=== PATIENT | male | born 1950 | race Two or more races ===

== ENCOUNTER 2024-12-22 10:48 | Inpatient (IN) | payer MEDICARE, MEDICAID, SELFPAY ==
[2024-12-22] VITALS (9 sets, daily range): BP systolic 79–102; BP diastolic 45–61; PULSE 64–107; RESP 14–98; TEMP 36.4–36.7; O2SAT 96–100; BMI 23.5; BMI 25.2
--- NOTE | 2024-12-22 11:21 | EKG_ITS ---
[facility] Test Date: 2024-12-22 Pat Name: SERGIO CURRY Department: Room: - Gender: Male [employer] A[employer]: : 1950 Requested By: ED Temporary Provider Order Number: [id number] Reading MD: ED Temporary Provider Measurements Intervals Sacul Rate: 108 P: 63 [place]: 179 QRS: 58 QRSD: 97 T: 26 QT: 319 QTc: 428 Interpretive Statements SINUS TACHYCARDIA NONSPECIFIC ST & T-WAVE ABNORMALITY ABNORMAL RHYTHM ECG Compared to ECG 04/22/2023 08:46:19 T-wave abnormality now present Sinus rhythm no longer present /store/S0/[id number].pdf
[2024-12-22] MEDS: SODIUM CHLORIDE 0.9% 1000 ML 1,000 ML 999 ML IV ×2 (11:48→12:19)
--- NOTE | 2024-12-22 11:49 | PD.EDADULT ---
ED General RME/HPI General Chief complaint: Nausea/Vomiting/Diarrhea Stated complaint: NAUSEA/VOMITING FOR THE PAST TWO WEEKS Time Seen by Provider: 12/22/24 11:33 Arrival date/time: 12/22/24 10:48 RME / HPI RME / HPI narrative: DR. DOLL MAIN ED EVALUATION: 74 year old male with past medical history significant for hypertension and umbilical hernia surgery presents to the Emergency Department accompanied by his with multiple complaints include a cough, hiccups, nausea, vomiting, and diarrhea onset 12/03/2024; then constipation for the last week. Related Data Home Medications ?Medication ?Instructions ?Recorded ?Confirmed losartan 100 1 tab PO QDAY 04/22/23 12/05/23 mg-hydrochlorothiazide 25 mg tablet oxycodone-acetaminophen 5 mg-325 1 tab PO Q6HR PRN Pain 12/05/23 12/05/23 mg tablet Held on 12/05/23. Instructions: Resume on 12/06/23. MAY RESUME IN 24 HOURS Allergies Allergy/AdvReac Type Severity Reaction Status Date / Time codeine Allergy Intermediate HYPERACTIVE Verified 12/22/24 10:50 Review of Systems Review of Systems Systems Reviewed: All systems reviewed, normal except as documented Narrative Review of Systems: GEN: No fever, no chills, no weight loss, + hiccups EYES: No discharge, no visual changes, no pain HEENT: No ear pain, no congestion, no sore throat PULM: No shortness of breath, + cough CV: No chest pain, no dyspnea on exertion, no palpitations GI: + nausea, + vomiting, + diarrhea (ealier see HPI), no pain, + constipation (last week see HPI) : No frequency, no urgency and no dysuria MUSC/SKEL: No joint pain, no back pain SKIN: No rash PSYCH: No hallucinations, no depression HEME/LYMPH: No easy bleeding or bruising tendencies NEURO: No weakness, no headache Past Medical History Past Medical History CARDIAC: Positive Hypertension Social History SMOKING STATUS: Never smoker SUBSTANCE USE: does not use ALCOHOL: Never ED Exam Narrative Physical exam: GENERAL APPEARANCE: AxOx4, generally well-appearing HEENT: NC, AT. MMM. EOMI, clear conjunctiva, oropharynx clear. NECK: Supple without lymphadenopathy. No stiffness or restricted ROM. HEART: Normal rate and regular rhythm, normal S1/S1, no m/r/g LUNGS: CTAB, moving air well. No crackles or wheezes are heard. ABDOMEN: Left abdominal pain more on the lower compared to the upper abdomen. Good bowel sounds heard. BACK: No midline C/T/L spine pain or deformity, No CVAT, no obvious deformity. EXTREMITIES: Without cyanosis, clubbing or edema. MUSCULOSKELETAL: FROM of all major joints, no chest tenderness NEUROLOGICAL: Grossly nonfocal. Alert and oriented, moving all 4 extremities. CN not formally tested but appear grossly intact. Observed to ambulate with normal gait. Skin: Warm and dry without any rash. Course Course Course Narrative: 1213: Sepsis alert initiated. Orders made at this time are congruent with ED Adult Sepsis Order List. Re-evaluation is to be completed. 1219: Fluids started. 1249: Sepsis reassessment performed consisting of lab review, vitals, physical exam including auscultation of heart, lungs, and visual evaluation of capillary refills, mucosal membranes and extremities. Quality Measures Current suspected stage: sepsis Possible source: GI tract/intra-abdominal Blood cultures ordered: yes Antibiotic ordered: Yes Pertinent labs: 12/22/24 12/22/24 11:43 15:27 Lactic Acid 5.0 H* mMol/L 2.8 H mMol/L (0.4-2.0) (0.4-2.0) Procalcitonin 0.98 H ng/ml (0.0-0.49) sepsis Orders Category Date Time Status Bedside Influenza A&B Antigen Test NOW Care 12/22/24 11:33 Completed EKG (ED ONLY) *Do not use* NOW Care 12/22/24 11:21 Completed Quinones to [place] Routine Care 12/22/24 14:26 Ordered NPO STAT Care 12/22/24 11:[address] chest abdomen pelvis wo Stat Exams 12/22/24 12:44 Completed EKG (ED Only) Stat Exams 12/22/24 11:21 Draft US gall bladder Stat Exams 12/22/24 14:32 Completed XR chest 1V portable Stat Exams 12/22/24 11:51 Completed Blood Culture (Lab) Stat Lab 12/22/24 14:20 Received CBC Stat Lab 12/22/24 11:43 Completed Comprehensive Metabolic Panel Stat Lab 12/22/24 11:43 Completed Creatine Kinase Stat Lab 12/22/24 11:43 Completed Lactate (Lactic Acid) Stat Lab 12/22/24 11:43 Completed Lactic Acid, 3 HR Stat Lab 12/22/24 15:27 Completed Lipase Stat Lab 12/22/24 11:43 Completed Magnesium Stat Lab 12/22/24 11:43 Completed Procalcitonin Stat Lab 12/22/24 11:43 Completed Troponin I Stat Lab 12/22/24 11:43 Completed Urinalysis Stat Lab 12/22/24 14:56 Completed Piper/Tazo Inj [Zosyn Inj] 3.375 gm Med 12/22/24 14:14 Discontinued SODIUM CHLORIDE 0.9% (Popper) [NS 0.9% (Popper)] 50 ml IV X1 Sodium Chloride 0.9% 1000 ml [Ns] 1,000 ml Med 12/22/24 11:47 Discontinued IV 999 mls/hr Sodium Chloride 0.9% 1000 ml [Ns] 1,000 ml Med 12/22/24 11:48 Discontinued IV 999 mls/hr Sodium Chloride 0.9% 500 ml [Ns] 500 ml Med 12/22/24 12:27 Discontinued IV 999 mls/hr Vital Signs Vital signs: Vital Signs Temperature 97.7 F 12/22/24 11:37 Pulse Rate 107 H 12/22/24 11:37 Respiratory Rate 19 12/22/24 11:37 Blood Pressure 83/54 L 12/22/24 11:37 Pulse Oximetry (%) 99 12/22/24 11:37 Oxygen Delivery Method Room Air 12/22/24 11:37 Procedures -ED EKG Interpretation #1: Date of EK12/22/24 Time of EK:27 Rate: 108 Interpretation: Interpreted by me Additional EKG comment: sinus tachycardia, rate 108, normal intervals, normal axis, no acute ST-T wave changes. MDM Patient data External records reviewed:: [facility] previous records (Reviewed EGD note by Dr. Mejia dated 12/05/23.) Clinical information provided by:: patient and spouse Social determinants that could affect healthcare access:: none Patient has the following chronic illnesses:: hypertension and umbilical hernia surgery How is presenting disease/condition affected by chronic disease/condition?: exacerbated by Evaluation data The following diagnostics were reviewed and interpreted by me:: lab results, radiology exam(s) and EKG tracing(s) Lab and/or radiology exams considered but not ordered:: none Interpretation Summary: Patient is in renal failure, septic and dehydrated, CT of chest/abdomen/pelvis ordered. RADIOLOGY Procedure(s): XR chest 1V portable Accession Number(s): [id number] cc: Keaton Cantu MD; Brock ([facility])Sandrita~ Examination: AP chest single view Technique one AP portable upright chest single view Exam date and time: December 22, 2024 1154 hrs. Comparison February 26, 2019 Indication: Syncopal episode today. Findings: Atelectasis versus scarring in the lingular segment. Atelectasis versus early pneumonia in the right mid and lower lung zone Mild prominence left ventricle Impression: Atelectasis and/or early pneumonia in the right mid and lower lung zone, clinical correlation advised Dictated By: Keaton Cantu MD Procedure(s): CT chest abdomen pelvis wo Accession Number(s): [id number] cc: Chase Doll MD; Keaton Cantu MD~ Examination: CT chest, without intravenous contrast. CT abdomen, without intravenous contrast. CT pelvis, without intravenous contrast. 2-D sagittal and coronal reconstructions. 3-D reconstructions. Date and time of exam:December 22, 2024 1350 hrs. Comparison January 14, 2023 Indications: Sepsis today, renal failure abdominal pain CTDI vol (mgy) 6.57 DLP (MGycm)524 Technique: Multiple CT images, 3.0 mm slice thickness, obtained chest, abdomen, pelvis, with the high-resolution 64 slice scanner.. Sagittal and coronal 2-D reconstructions are obtained. 3-D reconstructions Low dose protocols were performed. One or more of the following dose reduction techniques were used; automated exposure control, adjustment of the mA and/or KV according to patient size, use of iterative reconstruction technique. Findings: No thoracic aortic aneurysm dilatation Pulmonary artery segments are not enlarged No paratracheal tracheobronchial or bronchopulmonary adenopathy Extensive bilateral pneumonia primarily in the lower lobes No pulmonary edema Fatty liver, no focal liver or splenic lesions Gallbladder is significantly distended although no definite extrahepatic biliary tract dilatation No pancreatic or adrenal mass Perinephric stranding No renal calculi or hydronephrosis Aorta normal size Normal appendix No bowel obstruction Significant prostatomegaly AP dimension 5.1 cm with mild thickening of the urinary bladder wall Fat-containing left inguinal hernia Impression: Significant bilateral pneumonia especially lung bases Significantly distended gallbladder, recommend hepatobiliary sonography follow-up Minimal hydronephrosis, likely secondary to marked prostatomegaly Mild thickening of the urinary bladder wall, likely early urinary tract outflow obstruction secondary to the prostatomegaly Dictated By: Keaton Cantu MD Procedure(s): US gall bladder Accession Number(s): [id number] cc: Zack Mohan MD; Chase Doll MD; Keaton Cantu MD~ Examination: Abdomen sonogram, Limited Date and time of exam: December 22, 2024 1539 hrs. Indications: Upper abdominal pain nausea vomiting beginning 3 weeks ago Technique: Real-time prieto scale transabdominal sonographic images of the upper abdomen obtained. Findings: Gallbladder sludge No gallstones Normal gallbladder wall Common bile duct reports CM Pancreatic head 3.2 cm Liver 14.2 cm fatty infiltration Normal hepatopedal portal venous flow Patent IVC Impression: Gallbladder sludge, negative for cholelithiasis, negative for cholecystitis Dictated By: Keaton Cantu MD Medications Medications considered but not ordered:: none Medication administrations:: Medication Administration History Acetaminophen (Acetaminophen 325 Mg Tablet) 650 mg PO Q6H PRN PRN Reason: Fever >100.3 or pain Stop: 01/21/25 17:03 Hydrocodone Bitart/Acetaminophen (Hydrocodone/Apap 5/325 Tablet) 1 tab PO Q4HR PRN PRN Reason: PAIN SCALE 4-10(Mod-Sev Stop: 12/27/24 17:03 Albuterol/Ipratropium (Albuterol/Ipratropium (Duoneb) Rt June 3 Ml Nebu) 3 ml INH Q6HRRT [facility] Stop: 01/21/25 18:59 Benzonatate (Benzonatate 100 Mg Capsule) 200 mg PO BID [facility]; Protocol Stop: 01/21/25 20:59 Enoxaparin Sodium (Enoxaparin Sod Inj 40 Mg/0.4 Ml Syringe) 40 mg SC QDAY [facility] Stop: 01/05/25 17:14 Last Admin: 12/22/24 17:39 Dose: 40 mg Documented By: GM Guaifenesin (Guaifenesin Syrup 200 Mg/10 Ml Udc) 200 mg PO BID [facility]; Protocol Stop: 01/21/25 20:59 Sodium Chloride (Ns) 1,000 mls @ 75 mls/hr IV .[id number] THOM Stop: 01/21/25 17:14 Last Admin: 12/22/24 17:36 Dose: 75 mls/hr Documented By: GM Azithromycin 500 mg/ Sodium (Chloride) 250 mls @ 250 mls/hr IV QDAY@1400 [facility] Stop: 12/30/24 13:59 Piperacillin Sod/Tazobactam (Sod 3.375 gm/ Sodium Chloride) 50 mls @ 12.5 mls/hr IV Q8HR THOM Stop: 12/29/24 21:59 Azithromycin 500 mg/ Sodium (Chloride) 250 mls @ 250 mls/hr IV X1 ONE Stop: 12/22/24 18:29 Last Admin: 12/22/24 17:39 Dose: 250 mls/hr Documented By: GM Ondansetron HCl (Ondansetron Inj 2 Mg/Ml Inj 2 Ml) 4 mg IV Q6H PRN; Protocol PRN Reason: NAUSEA OR VOMITING Stop: 01/21/25 17:03 Pantoprazole Sodium (Pantoprazole Inj 40 Mg Vial) 40 mg IVP QDAY THOM Stop: 01/21/25 17:14 Last Admin: 12/22/24 17:39 Dose: 40 mg Documented By: Sennosides (Senna Tablet) 1 tab PO QDAY THOM; Protocol Stop: 01/22/25 08:59 Discontinued Medications Acetaminophen (Acetaminophen 325 Mg Tablet) 650 mg PO Q6H PRN PRN Reason: Fever >100.3 or pain Stop: 01/21/25 17:03 Sodium Chloride (Ns) 1,000 mls @ 999 mls/hr IV .Q1H1M ONE Stop: 12/22/24 12:47 Last Infusion: 12/22/24 13:10 Dose: Infused Documented By: Admin: 12/22/24 11:48 Dose: 999 mls/hr Documented By: Sodium Chloride (Ns) 1,000 mls @ 999 mls/hr IV .Q1H1M ONE Stop: 12/22/24 12:48 Last Infusion: 12/22/24 13:38 Dose: Infused Documented By: Admin: 12/22/24 12:19 Dose: 999 mls/hr Documented By: Sodium Chloride (Ns) 500 mls @ 999 mls/hr IV .Q31M ONE Stop: 12/22/24 12:57 Last Infusion: 12/22/24 14:04 Dose: Infused Documented By: Admin: 12/22/24 13:38 Dose: 999 mls/hr Documented By: Piperacillin Sod/Tazobactam (Sod 3.375 gm/ Sodium Chloride) 50 mls @ 100 mls/hr IV X1 ONE Stop: 12/22/24 14:43 Last Infusion: 12/22/24 16:05 Dose: Infused Documented By: Admin: 12/22/24 15:31 Dose: 100 mls/hr Documented By: DD Sodium Chloride (Sodium Chloride Rt 10% 15 Ml Nebu) 5 ml INH X1 ONE Stop: 12/22/24 17:11 see above Consultations Consultation(s) initiated? (list below): Yes Consultation #1 (Physician, Specialty, Details): Discussed test HPI, PMHx, lab, radiology results and/or management with hospitalist. Will admit for further evaluation and management. Accepts patient for admission. Time: 14:29 Diagnosis Differential Diagnosis ED Complaint MDM: URI, sepsis, SBO, gastrointestinal virus Most likely diagnosis given after review of the tests above:: Severe sepsis Gastroenteritis Acute kidney injury Admission Indicated Admission indicated?: indicated Explain why admission is indicated or not indicated:: Diagnoses meet admission criteria. Admission Request Was there a request for admission?: Yes Admission Attestation Admission request attestation: Discussed case with [] from Hospitalist service regarding admission. Discussed patients ED course, exam findings, labs, and radiology results. The Hospitalist [agrees,declines] to accept the patient for admission. Disposition Plan Disposition Plan: Admit Medical Decision Making MDM Narrative MDM Narrative: Mr. Henderson presents to the emergency department with a rather prolonged illness at home and with a duration of 3 weeks. There appears to be decreased p.o. intake due to vomiting and increased output with diarrhea. He presented hypotensive on arrival concerning for profound dehydration and was rapidly resuscitated with IV fluids with normalization of his blood pressure. He did not require pressors. Exam was otherwise significant for dry mucous membranes, and bilateral lower abdominal tenderness without rebound or guarding. As a result laboratory testing and CT of the abdomen and pelvis were done to assess for possible sources of sepsis or bacteremia. Laboratories also significant for a worsening creatinine at 2.5 from his baseline of 1.3-1.5. He also has a profoundly elevated lactic acidosis suggestive of sepsis where sepsis alert/protocol was as a result pursued. Otherwise other significant laboratory results included a leukocytosis of 18,000. CT scan of the chest abdomen pelvis were significant for bilateral lower lobe pneumonias, and abdominal CT with prostatomegaly and signs of early obstructive uropathy. As result a Quinones catheter was placed to manage any postobstructive component to his acute kidney injury. His nausea vomiting diarrhea, and abdominal exam are suggestive of a colitis or diverticulitis. On my interpretation abdominal CT does appear to have diverticular disease throughout his sigmoid, and ascending colon, with possibly some early peridiverticular stranding. With my read of the CT scan and his presentation, it would be more consistent with a diverticulitis. as a result the patient was covered with piperacillin for both GI coverage and for coverage for his pneumonia. Working diagnosis is a mild diverticulitis with profound dehydration and acute kidney injury. Objectively he does also have bilateral lower lobe infiltrates. Both of those will need coverage with IV antibiotics, aggressive hydration, and further management for his sepsis and acute kidney injury. Differential Diagnosis Differential Diagnosis: URI, sepsis, SBO, gastrointestinal virus Lab Data 12/22/24 11:43 12/22/24 11:43 Labs: Lab Results 12/22/24 12/22/24 12/22/24 Range/Units 11:43 14:56 15:27 WBC 18.0 H (3.8-10.6) Thou/mm3 RBC 4.58 (4.50-5.90) Miln/mm3 Hgb 13.3 L (13.5-16.0) g/dL Hct 38.8 L (41.0-53.0) % MCV 85 (80-100) fL MCH 29.0 (25.0-35.0) pg MCHC 34.3 (31.0-37.0) g/dl RDW Std Deviation 38.2 (35.1-43.9) fL Plt Count 360 (140-440) Thou/mm3 Neut % (Auto) 59 (37-80) % Lymph % (Auto) 33 (10-50) % [place] % (Auto) 6 (0-12) % Eos % (Auto) 1 (0-10) % Baso % (Auto) 1 (0-2.5) % Neut # (Auto) 10.6 H (1.8-7.7) Thou/mm3 Lymph # (Auto) 6.0 H (1.0-4.8) Thou/mm3 [place] # (Auto) 1.2 H (0.0-0.8) Thou/mm3 Eos # (Auto) 0.1 (0.0-0.5) Thou/mm3 Baso # (Auto) 0.1 (0.0-0.2) Thou/mm3 Immature Gran # (Auto) 0.13 H (0.00-0.00) Thou/mm3 Absolute Nucleated RBC 0.00 (0.00-0.00) Thou/mm3 Immature Gran % 1 H (0-0) % Nucleated RBC % 0 (0) /100 WBC Sodium 131 L (136-145) mMol/L Potassium 4.0 (3.4-5.1) mMol/L Chloride 94 L (98-107) mMol/L Carbon Dioxide 20.5 (20.0-31.0) mMol/L Anion Gap 17 H (7-16) BUN 96 H (9-23) mg/dL Creatinine 2.5 H (0.6-1.3) mg/dL Estim Creat Clear Calc 25.0 L (>60) mL/min eGFR 27 L (60 - ) See Note BUN/Creatinine Ratio 38 H (12-20) Ratio Glucose 216 H (74-106) mg/dL Calculated Osmolality 299 H (275-295) Lactic Acid 5.0 H* 2.8 H (0.4-2.0) mMol/L Calcium 9.6 (8.3-10.6) mg/dL Corrected Calcium 9.6 (8.5-10.1) mg/dL Magnesium 2.8 H (1.6-2.6) mg/dL Total Bilirubin 1.2 (0.3-1.2) mg/dL AST 42 H (0-34) U/L ALT 65 H (10-49) U/L Alkaline Phosphatase 103 (46-116) U/L Total Creatine Kinase 50 (34-171) U/L Troponin I < 0.020 (0.0-0.045) ng/mL Total Protein 8.8 H (5.7-8.2) gm/dL Albumin 4.3 (3.4-4.8) gm/dL Globulin 4.5 H (2.3-3.5) gm/dL Albumin/Globulin Ratio 1.0 L (1.2-2.2) Lipase 70 H (12-53) U/L Procalcitonin 0.98 H (0.0-0.49) ng/ml Ur Collection Type Clean Catch Urine Color Lt-Yellow (Lt Yel-Yel) Urine Clarity Clear (Clear/Hazy) Urine pH 6.0 (5.0-7.0) Ur Specific [place] 1.012 (1.001-1.035) Urine Protein Negative (Neg - Trace) Urine Glucose (UA) Negative (Negative) Urine Ketones Negative (Negative) Urine Blood Negative (Negative) Urine Nitrite Negative (Negative) Urine Bilirubin Negative (Negative) Urine Urobilinogen (Auto) Negative (0.0-1.0) mg/dL Ur Leukocyte Esterase Negative (Negative) Urine RBC 1 (0-3) /hpf Urine WBC < 1 (0-5) /hpf Ur Squamous Epith Cells 0 (0-5) /hpf Urine Bacteria None (None) Critical Care Time Critical Care Time Critical Care Time: Yes Total Critical Care Time (min.): 30 Attestation: The high probability of sudden, clinically significant deterioration in the patient?s condition required the highest level of my preparedness to intervene urgently. The services I provided to this patient were to treat and/or prevent clinically significant deterioration. Services included the following: chart data review, reviewing nursing notes and/or old charts, documentation time, retirement sales consultant collaboration regarding findings and treatment options, medication orders and management, direct patient care, vital sign assessments and ordering, interpreting and reviewing diagnostic studies and lab tests. Aggregate critical care time includes only time during which I was engaged in work directly related to the patient?s care, as described above, whether at bedside or elsewhere in the Emergency Department. It did not include time spent performing other reported procedures or the services of residents, students, nurses or physician assistants. Discharge Plan Plan Patient Disposition: Admit Acute Care w/in Hospital Problem List Clinical Impression: Severe sepsis, Acute kidney injury, Gastroenteritis
[2024-12-22 12:37] LABS: Basophils # (Auto) 0.1 Thou/mm3 (0.0-0.2); Basophils % (Auto) 1 % (0-2.5); Eosinophils # (Auto) 0.1 Thou/mm3 (0.0-0.5); Eosinophils % (Auto) 1 % (0-10); Hematocrit 38.8 % (41.0-53.0); Hemoglobin 13.3 g/dL (13.5-16.0); Immature Granulocytes % (Auto) 1 % (0-0); Immature Granulocytes Auto 0.13 Thou/mm3 (0.00-0.00); Lymphocytes % (Auto) 33 % (10-50); Mean Corpuscular HGB Conc 34.3 g/dl (31.0-37.0); Mean Corpuscular Volume 85 fL (80-100); Monocytes # (Auto) 1.2 Thou/mm3 (0.0-0.8); Monocytes % (Auto) 6 % (0-12); Neutrophils # (Auto) 10.6 Thou/mm3 (1.8-7.7); Neutrophils % (Auto) 59 % (37-80); Nucleated Red Blood Cell % 0 /100 WBC (0); Platelet Count 360 Thou/mm3 (140-440); RDW Standard Deviation 38.2 fL (35.1-43.9); Red Blood Count 4.58 Miln/mm3 (4.50-5.90)
[2024-12-22 12:39] LABS: Alanine Aminotransferase 65 U/L (10-49); Albumin, Serum 4.3 gm/dL (3.4-4.8); Alkaline Phosphatase 103 U/L (46-116); Anion Gap 17 (7-16); Aspartate Amino Transferase 42 U/L (0-34); BUN/Creatinine Ratio 38 Ratio (12-20); Bilirubin,Total 1.2 mg/dL (0.3-1.2); Blood Urea Nitrogen 96 mg/dL (9-23); Calcium 9.6 mg/dL (8.3-10.6); Calcium (Corrected) 9.6 mg/dL (8.5-10.1); Carbon Dioxide 20.5 mMol/L (20.0-31.0); Chloride 94 mMol/L (98-107); Creatinine (Component) 2.5 mg/dL (0.6-1.3); Globulin 4.5 gm/dL (2.3-3.5); Glucose 216 mg/dL (74-106); Lipase 70 U/L (12-53); Magnesium 2.8 mg/dL (1.6-2.6); Osmolality,Calculated 299 (275-295); Procalcitonin 0.98 ng/ml (0.0-0.49); Sodium 131 mMol/L (136-145); Total Protein 8.8 gm/dL (5.7-8.2); Troponin I < 0.020 ng/mL (0.0-0.045); eGFR 27 See Note
--- NOTE | 2024-12-22 12:44 | XR_ITS ---
Examination: CT chest, without intravenous contrast. CT abdomen, without intravenous contrast. CT pelvis, without intravenous contrast. 2-D sagittal and coronal reconstructions. 3-D reconstructions. Date and time of exam:December 22, 2024 1350 hrs. Comparison January 14, 2023 Indications: Sepsis today, renal failure abdominal pain CTDI vol (mgy) 6.57 DLP (MGycm)524 Technique: Multiple CT images, 3.0 mm slice thickness, obtained chest, abdomen, pelvis, with the high-resolution 64 slice scanner.. Sagittal and coronal 2-D reconstructions are obtained. 3-D reconstructions Low dose protocols were performed. One or more of the following dose reduction techniques were used; automated exposure control, adjustment of the mA and/or KV according to patient size, use of iterative reconstruction technique. Findings: No thoracic aortic aneurysm dilatation Pulmonary artery segments are not enlarged No paratracheal tracheobronchial or bronchopulmonary adenopathy Extensive bilateral pneumonia primarily in the lower lobes No pulmonary edema Fatty liver, no focal liver or splenic lesions Gallbladder is significantly distended although no definite extrahepatic biliary tract dilatation No pancreatic or adrenal mass Perinephric stranding No renal calculi or hydronephrosis Aorta normal size Normal appendix No bowel obstruction Significant prostatomegaly AP dimension 5.1 cm with mild thickening of the urinary bladder wall Fat-containing left inguinal hernia Impression: Significant bilateral pneumonia especially lung bases Significantly distended gallbladder, recommend hepatobiliary sonography follow-up Minimal hydronephrosis, likely secondary to marked prostatomegaly Mild thickening of the urinary bladder wall, likely early urinary tract outflow obstruction secondary to the prostatomegaly
[2024-12-22 13:16] LABS: Creatine Kinase 50 U/L (34-171)
[2024-12-22] MEDS: SODIUM CHLORIDE 0.9% 500 ML 500 ML 999 ML IV (13:38)
--- NOTE | 2024-12-22 14:32 | XR_ITS ---
Examination: Abdomen sonogram, Limited Date and time of exam: December 22, 2024 1539 hrs. Indications: Upper abdominal pain nausea vomiting beginning 3 weeks ago Technique: Real-time prieto scale transabdominal sonographic images of the upper abdomen obtained. Findings: Gallbladder sludge No gallstones Normal gallbladder wall Common bile duct reports CM Pancreatic head 3.2 cm Liver 14.2 cm fatty infiltration Normal hepatopedal portal venous flow Patent IVC Impression: Gallbladder sludge, negative for cholelithiasis, negative for cholecystitis
[2024-12-22 15:06] LABS: Reflex Lactate? Y
[2024-12-22 15:09] LABS: Collection Type, Urine Clean Catch; Squamous Epithelial Cell,Urine 0 /hpf (0-5)
[2024-12-22] MEDS: PIPER/TAZO INJ 3.375 GM in SODIUM CHLORIDE 0.9% (Popper) 50 ML IV ×2 (15:31→21:14)
[2024-12-22 15:42] LABS: Lactic Acid, 3 HR 2.8 mMol/L (0.4-2.0)
[2024-12-22 16:55] LABS: Bilirubin,Urine Negative (Negative); Blood,Urine Negative (Negative); Clarity,Urine Clear (Clear/Hazy); Color,Urine Lt-Yellow (Lt Yel-Yel); Glucose, Urine Negative (Negative); Ketones,Urine Negative (Negative); Leukocyte Esterase,Urine Negative (Negative); Nitrite,Urine Negative (Negative); Protein,Urine Negative (Neg - Trace); RBC,Urine 1 /hpf (0-3); Specific Gravity,Urine 1.012 (1.001-1.035); Urobilinogen,Urine Negative mg/dL (0.0-1.0); WBC,Urine < 1 /hpf (0-5)
--- NOTE | 2024-12-22 17:04 | ESHP_ITS ---
<Statement entered by Melvin Medina MD - 12/23/24 11:21> I discussed with and supervised the internal communications intern physician involved in the care of this patient. Patient assessment and plan was discussed with entire medicine team, including my attending. I agree with the assessment and plan as documented by internal communications intern doctor. Patient care was discussed with my attending physician Dr. Israel Medina, PGY-2 Documentation for date of: 12/22/24 HPI History of Present Illness Chief complaint: Nausea and Vomiting History of present illness: HPI: Patient is a 74-year-old male with a past medical history significant for primary hypertension, umbilical hernia s/p mesh repair and BPH presented with a chief complaint of nausea and vomiting. Patient says his nausea and vomiting started on December 03 after a sick contact at his [employer]. He described his nausea as constant and associated with coughing episodes after which he would vomit. Described the vomit as food contents, mucus. Denied any blood, hematemesis, coffee-ground emesis and bile. Patient also had associated decrease in appetite during the same time. He said he would usually eat a full burger but struggled to eat half a burger. He had 1 episode of diarrhea last week which she described as loose stool, denied any hematochezia, melena and incontinence. Since then he has been constipated, not having a bowel movement for almost 10 days. He also has an associated of productive cough of yellow/green sputum. Denies any shortness of breath, fever, diarrhea. He says he has a pleuritic chest pain which worsens after he coughs. Of note, the first week and this months patient says that he called his doctor who prescribed him a 10-day course of antibiotics. He cannot recall the name of the antibiotics but completed the course with no relief of his symptoms. ED course: BP 83/54, pulse 107, RR 19, temp 97.7 F, SpO2 99% on room air. Labs significant for WBC 18, NA 131, BUN 96, CR 2.5, LA 5??>2.8, magnesium 2.8, Pro-Kenneth 0.98. Chest x-ray significant for bibasilar atelectasis and consolidation. CT abdomen pelvis significant for distended gallbladder, minimal bilateral hydronephrosis with significant prostatomegaly. Gallbladder ultrasound significant for sludge. Negative for cholecystitis and cholelithiasis In the ED patient received 3 L normal saline IV fluid bolus and Zosyn 3.375 g IV x 1. Sepsis secondary to likely community-acquired pneumonia Review of Systems Review of Systems Narrative Review of Systems: GENERAL: Denies fever/chills or diaphoresis. HEENT: Denies headaches or visual changes. Denies discharge. Neuro: Denies unusual weakness or difficulty speaking. CARDIO: Denies chest pain or palpitations. PULM: As above GI: As above. URO: Denies burning/itching/pain/urinary changes. MSK/EXT/SKIN: Denies joint/skeletal/muscle pain, issues/changes in upper or lower extremities, itchiness, or superficial pain. PSYCH: Cooperative, pleasant mood & affect. The rest of the review of systems is otherwise negative. Past Medical History Past Medical History Comments PMH COMMENT: Past medical history: BPH Primary hypertension Medication list: Losartan/HCTZ / 1 tab p.o. 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 Has 1 son, estranged Tobacco use: Approximately 30?89-kuuk-mbwh history. Quit in 2003 ETHO use: Previously a daily drinker. Quit in 2003 Illicit drug use: Denies Social History Note: lives with . At baseline ambulates independently Family History: No significant Exam Vital Signs Temp Pulse Resp BP Pulse Ox O2 Del Method 98.0 F 71 20 102/53 L 100 Room Air 12/22/24 16:16 12/22/24 16:16 12/22/24 16:16 12/22/24 16:16 12/22/24 16:16 12/22/24 16:16 Narrative Exam Constitutional Alert, oriented x 3 and comfortable. Elderly male on room air, excessive lacrimation, mild conjunctivitis HEENT Vision grossly intact. Patent nares. Trachea midline Respiratory Chest normal on inspection and scattered wheezes and rhonchi auscultated in all lung oneal Cardiovascular S1 and S2 audible, RRR. No murmurs carotid bruit. No gross JVD. Abdominal Soft and non tender to palpation in all quadrants. BS + Genitourinary No bladder tenderness, no flank pain. Normal to palpation Musculoskeletal Extremities tone within normal limits. Right leg shortened. Neurological CN II - XII grossly intact. Extremity motor and sensation grossly intact. Skin Warm, dry and intact. No apparent lesions. Psychiatric Patient has good affect, is cooperative Results: Labs 12/23/24 05:05 12/23/24 05:05 Labs: Short CBC 12/22/24 Range/Units 11:43 WBC 18.0 H (3.8-10.6) Thou/mm3 Hgb 13.3 L (13.5-16.0) g/dL Hct 38.8 L (41.0-53.0) % Plt Count 360 (140-440) Thou/mm3 BMP 12/22/24 11:43 Sodium 131 L Potassium 4.0 Chloride 94 L Carbon Dioxide 20.5 BUN 96 H Creatinine 2.5 H Glucose 216 H Calcium 9.6 Cardiac Enzymes 12/22/24 Range/Units 11:43 Total Creatine Kinase 50 (34-171) U/L Troponin I < 0.020 (0.0-0.045) ng/mL Liver Function 12/22/24 Range/Units 11:43 Total Bilirubin 1.2 (0.3-1.2) mg/dL AST 42 H (0-34) U/L ALT 65 H (10-49) U/L Alkaline Phosphatase 103 (46-116) U/L Albumin 4.3 (3.4-4.8) gm/dL Urine 12/22/24 Range/Units 14:56 Urine Color Lt-Yellow (Lt Yel-Yel) Urine Clarity Clear (Clear/Hazy) Urine pH 6.0 (5.0-7.0) Ur Specific [place] 1.012 (1.001-1.035) Urine Protein Negative (Neg - Trace) Urine Glucose (UA) Negative (Negative) Quality Measures Quality Measures none Advance care planning discussed with:: patient and spouse Medications Home Medications and Allergies Home Medications ?Medication ?Instructions ?Recorded ?Confirmed ?Type losartan 100 1 tab PO QDAY 04/22/2312/22 History mg-hydrochlorothiazide 25 mg tablet Allergies Allergy/AdvReac Type Severity Reaction Status Date / Time codeine Allergy Intermediate HYPERACTIVE Verified 12/22/24 10:50 Visit Medications Discontinued Medications Sodium Chloride (Ns) 1,000 mls @ 999 mls/hr IV .Q1H1M ONE Stop: 02/22/25 12:47 Last Infusion: 12/22/24 13:10 Dose: Infused Sodium Chloride (Ns) 1,000 mls @ 999 mls/hr IV .Q1H1M ONE Stop: 12/22/24 12:48 Last Infusion: 12/22/24 13:38 Dose: Infused Sodium Chloride (Ns) 500 mls @ 999 mls/hr IV .Q31M ONE Stop: 12/22/24 12:57 Last Infusion: 12/22/24 14:04 Dose: Infused Piperacillin Sod/Tazobactam (Sod 3.375 gm/ Sodium Chloride) 50 mls @ 100 mls/hr IV X1 ONE Stop: 12/22/24 14:43 Last Infusion: 12/22/24 16:05 Dose: Infused Assessment & Plan Plan Patient is a 74-year-old male with a past medical history significant for primary hypertension, umbilical hernia s/p mesh repair and BPH presented with a chief complaint of nausea and vomiting. Patient will be admitted for workup and management of sepsis secondary to community-acquired pneumonia. Sepsis secondary to likely community-acquired pneumonia Lactic acidosis Persistent nausea and vomiting Patient presented with a 2-week history of nausea and vomiting. Associated cough with posttussive vomiting. On exam patient has scattered bilateral wheeze and rhonchi in all lung oneal Chest x-ray significant for bibasilar atelectasis and consolidation. CT abdomen pelvis significant for distended gallbladder, minimal bilateral hydronephrosis with significant prostatomegaly. PSI/PORT risk class IV. Hospitalization recommended based on risk Plan: ? Clear liquid diet as tolerated ? RSV, cocci and sputum culture ordered ? Pending blood cultures ? DuoNebs Q6 hourly ? Zosyn 3.375 g IV Q8 hourly ? Azithromycin 500 Mg IV daily ? Ondansetron 4 Mg IV every 6 hourly as needed for nausea/vomiting ? Pantoprazole 40 Mg IV daily Acute kidney injury on CKD prerenal versus postrenal BPH Patient's baseline creatinine between 1.3?1.5 On admission creatinine 2.5 Patient says he was previously on medication for BPH but had to stop due to side effects. Plan: ? Pending urinalysis ? Maintenance normal saline IV fluids at 75 cc/h ? Renally dose medication ? Avoid nephrotoxic agents Primary hypertension On admission patient's BP 83/54 Home medication losartan/HCTZ 100/25 1 tab p.o. daily Plan: ? Antihypertensives on hold in setting of sepsis Constipation Patient endorses last bowel movement was almost 10 days ago Plan: ? Senna 1 tab p.o. daily Gallbladder sludge Patient presented with persistent nausea and vomiting for 2 weeks duration. On exam patient's abdomen nontender to palpation in all quadrants CT abdomen pelvis significant for distended gallbladder, minimal bilateral hydronephrosis with significant prostatomegaly. Gallbladder ultrasound significant for sludge. Negative for cholecystitis and cholelithiasis Plan: ? General Surgery, Dr. Wisdom consulted. Appreciate recommendations Health maintenance: Disposition: IV antibiotics. Nebulizations. GEN surg consult Diet: Clear liquid diet Lines: pIVs GI Prophylaxis: Pantoprazole Thrombo Prophylaxis: Enoxaparin Code status: FULL CODE Plan of care discussed with Attending Dr. Wood and PGY2 Dr. Carol Ramírez MD PGY 1 Attending Provider Attestation/Addendum I, Christina Wood, , attest that I was physically present for the alonso portions of the service and evaluated the patient with the resident and I reviewed and discussed the case with the resident and agree with the resident's findings and plans of care as documented above Patient is a 74 year old male with Pmhx of HTN, BPH, gangrene of buttock who presented to the ED with fevers and chills, along with 3 weeks of N/V/D. He reports diffuse abdominal pain, particularly in LLQ. Pt reports that he has had constipation the past week however. He reports having had decreased PO intake due to persistent N/V. Patient has seen urology in the past and underwent procedure for BPH. Patient denies any dysuria, straining or urinary incontinence. Patient was noted to be septic with leukocytosis of 18, tachycardia of 107, BP of 79/45 -improved with 4L of IV fluid bolus, lactic acid of 5.0. UA is negative for UTI. CXR shows atelectasis/ early pneumonia in right mid and lower lung zones. A CT chest/abdomen/pelvis was done showing significant b/l PNA in lung bases, significantely distended gallbladder; minimal hydronephrosis 2/2 marked prostatomegaly and mild thickening of urinary bladder wall. Patient has a negative adrian's sign on exam despite enlarged gallbladder noted on imaging. Gallbladder US shows evidence of sludge, no cholecystitis or cholelithiasis. Patient denies postprandial pain. Will admit to med/tele for further workup and medical management of severe sepsis 2/2 pneumonia versus colitis given abdominal symptoms. Will cover with IV azithromycin and zosyn, f/u cultures and continue with IV fluid hydration. UA negative for any evidence of UTI.
[2024-12-22] MEDS: SODIUM CHLORIDE 0.9% 1000 ML 1,000 ML 75 ML IV (17:36)
[2024-12-22] MEDS: AZITHROMYCIN INJ 500 MG in SODIUM CHLORIDE 0.9% 250 ML 250 ML 250 MG IV (17:39)
[2024-12-22] MEDS: PANTOPRAZOLE INJ 40 MG VIAL IVP (17:39)
[2024-12-22] MEDS: ENOXAPARIN SOD INJ 40 MG/0.4 ML SYRINGE SC (17:39)
--- NOTE | 2024-12-22 18:40 | ESCONSULT_ITS ---
HPI Consult details History of present illness: 74M with HTN presenting to ER with nausea/vomiting. Pt reports symptoms began almost 3 weeks ago after he ate a hamburger; in addition pt has noted some productive cough, chest pain which has since improved as well as diffuse abdominal pain. In ER pt is found to have WBC 18, DANA and lactic acidosis, with CT showing pneumonia, distended gallbladder and possible cystitis. Gallbladder US shows sludge but is otherwise negative Review of Systems Review of Systems ROS Unobtainable: All systems reviewed & no additional complaints except as documented Meds Home Medications and Allergies Home Medications ?Medication ?Instructions ?Recorded ?Confirmed ?Type losartan 100 1 tab PO QDAY 04/22/2312/05 History mg-hydrochlorothiazide 25 mg tablet oxycodone-acetaminophen 5 mg-325 1 tab PO Q6HR PRN Marcello n 12/05/23 12/05/23 History mg tablet Held on 12/05/23. Instructions: Resume on 12/06/23. MAY RESUME IN 24 HOURS Allergies Allergy/AdvReac Type Severity Reaction Status Date / Time codeine Allergy Intermediate HYPERACTIVE Verified 12/22/24 10:50 Exam Vital Signs Temp Pulse Resp BP Pulse Ox O2 Del Method 98.0 F 71 18 102/53 L 100 Room Air 12/22/24 16:16 12/22/24 17:47 12/22/24 17:47 12/22/24 16:16 12/22/24 16:16 12/22/24 16:16 Constitutional Constitutional: no acute distress Routine Respiratory Exam Respiratory: Present no resp distress Routine Abdominal Exam Abdominal: Present soft; Absent tenderness (negative Perales's sign) or distended Results Results: Laboratory Laboratory results: results reviewed Results: Imaging CT scan - abdomen: report reviewed and image reviewed US - abdomen: report reviewed Assessment & Plan Plan 74M with HTN presenting with 3-week history of vomiting and incidental distended gallbladder with sludge. Pt has no symptoms of biliary colic, does not require surgical intervention Plase reconsult as needed
[2024-12-22] MEDS: ALBUTEROL/IPRATROPIUM (Duoneb) RT SOL 3 ML NEBU INH (19:24)
--- NOTE | 2024-12-22 20:21 | PC.NURSE ---
REPORT GIVEN TO NICOLE IRIZARRY AT [facility].
[2024-12-22] MEDS: guaiFENesin SYRUP 200 MG/10 ML UDC PO (20:37)
[2024-12-22] MEDS: BENZONATATE 100 MG CAPSULE 200 MG PO (20:37)
[2024-12-22 21:54] LABS: Respiratory Syncytial Virus Ag Negative (Negative)
[2024-12-23] VITALS (10 sets, daily range): BP systolic 98–115; BP diastolic 53–62; PULSE 56–88; RESP 14–99; TEMP 36–36.8; O2SAT 95–100
[2024-12-23] MEDS: ALBUTEROL/IPRATROPIUM (Duoneb) RT SOL 3 ML NEBU INH ×4 (00:48→22:39)
[2024-12-23] MEDS: PIPER/TAZO INJ 3.375 GM in SODIUM CHLORIDE 0.9% (Popper) 50 ML IV ×3 (05:04→23:06)
[2024-12-23 06:34] LABS: Basophils # (Auto) 0.1 Thou/mm3 (0.0-0.2); Basophils % (Auto) 1 % (0-2.5); Eosinophils # (Auto) 0.1 Thou/mm3 (0.0-0.5); Eosinophils % (Auto) 1 % (0-10); Hematocrit 28.8 % (41.0-53.0); Hemoglobin 9.8 g/dL (13.5-16.0); Immature Granulocytes % (Auto) 0 % (0-0); Immature Granulocytes Auto 0.03 Thou/mm3 (0.00-0.00); Lymphocytes # (Auto) 1.3 Thou/mm3 (1.0-4.8); Lymphocytes % (Auto) 18 % (10-50); Mean Corpuscular Hemoglobin 28.8 pg (25.0-35.0); Mean Corpuscular Volume 85 fL (80-100); Monocytes # (Auto) 0.5 Thou/mm3 (0.0-0.8); Monocytes % (Auto) 8 % (0-12); Neutrophils % (Auto) 72 % (37-80); Nucleated Red Blood Cell % 0 /100 WBC (0); Platelet Count 233 Thou/mm3 (140-440); RDW Standard Deviation 39.1 fL (35.1-43.9)
[2024-12-23 06:58] LABS: Alanine Aminotransferase 39 U/L (10-49); Albumin, Serum 3.5 gm/dL (3.4-4.8); Albumin/Globulin Ratio 1.1 (1.2-2.2); Alkaline Phosphatase 74 U/L (46-116); Anion Gap 10 (7-16); Aspartate Amino Transferase 20 U/L (0-34); BUN/Creatinine Ratio 43 Ratio (12-20); Bilirubin,Total 0.9 mg/dL (0.3-1.2); Blood Urea Nitrogen 81 mg/dL (9-23); Calcium 8.5 mg/dL (8.3-10.6); Calcium (Corrected) 8.9 mg/dL (8.5-10.1); Carbon Dioxide 24.7 mMol/L (20.0-31.0); Cardiac Risk Estimate 6.4 RATIO (4.0-6.7); Chloride 104 mMol/L (98-107); Cholesterol 96 mg/dL (132-200); Creatinine (Component) 1.9 mg/dL (0.6-1.3); Estimated Creatinine Clearance 31.7 mL/min (>60); Globulin 3.3 gm/dL (2.3-3.5); Glucose 98 mg/dL (74-106); HDL Cholesterol 15 mg/dL (40-60); LDL Cholesterol,Calculated 43 mg/dL (0-130); Osmolality,Calculated 301 (275-295); Phosphorous 3.4 mg/dL (2.4-5.1); Potassium 3.7 mMol/L (3.4-5.1); Sodium 139 mMol/L (136-145); Thyroid Stimulating Hormone 0.64 uIU/mL (0.55-4.78); Total Protein 6.8 gm/dL (5.7-8.2); Triglycerides 188 mg/dL (30-150); eGFR 37 See Note
[2024-12-23 07:02] LABS: Glucose Estimated Average 140 mg/dL (80-131); Hemoglobin A1C 6.5 % Hgb (4.8-6.0)
[2024-12-23] MEDS: guaiFENesin SYRUP 200 MG/10 ML UDC PO ×2 (08:00→20:51)
[2024-12-23] MEDS: BENZONATATE 100 MG CAPSULE 200 MG PO ×2 (08:00→20:52)
[2024-12-23] MEDS: SENNA TABLET 1 TAB PO (08:00)
[2024-12-23] MEDS: PANTOPRAZOLE INJ 40 MG VIAL IVP (08:00)
[2024-12-23] MEDS: ENOXAPARIN SOD INJ 40 MG/0.4 ML SYRINGE SC (08:01)
[2024-12-23] MEDS: SODIUM CHLORIDE 0.9% 1000 ML 1,000 ML 75 ML IV ×2 (08:02→23:11)
--- NOTE | 2024-12-23 11:19 | ESPR_ITS ---
<Statement entered by Malachi Simmons MD - 12/24/24 07:11> Agree with plan and examination finding on the note below. Patient seen and examined at bedside today. Labs and imaging reviewed. Patient care discussed with my attending Dr. Wood and co-resident Dr. Ramírez. Documentation for date of: 12/23/24 Subjective Subjective Interval history: Patient was seen and examined at bedside this AM. No acute exents overnight. Patient tolerating clear liquid diet, adequate urine output and mentation is at baseline. Patient endorses improvement of nausea and cough. Will decrease DuoNebs to Q8 hourly from 6 hourly, start on regular diet and incentive spirometer. RSV negative, cocci serology pending. HbA1c 6.5% Exam Vital Signs Temp Pulse Resp BP Pulse Ox O2 Del Method O2 Flow Rate 97.2 F 70 17 103/56 L 98 Room Air 100 12/23/24 08:00 12/23/24 08:00 12/23/24 08:00 12/23/24 08:00 12/23/24 08:00 12/23/24 08:00 12/23/24 04:00 Narrative Exam Constitutional Alert, oriented x 3 and comfortable. Elderly male on room air, excessive lacrimation, mild conjunctivitis HEENT Vision grossly intact. Patent nares. Trachea midline Respiratory Chest normal on inspection and decreased air entry at bases with mild atelectasis?improved Cardiovascular S1 and S2 audible, RRR. No murmurs carotid bruit. No gross JVD. Abdominal Soft and non tender to palpation in all quadrants. BS + Genitourinary No bladder tenderness, no flank pain. Normal to palpation Musculoskeletal Extremities tone within normal limits. Right leg shortened. Neurological CN II - XII grossly intact. Extremity motor and sensation grossly intact. Skin Warm, dry and intact. No apparent lesions. Psychiatric Patient has good affect, is cooperative Objective Labs 12/23/24 05:05 12/23/24 05:05 Labs: Laboratory Results - last 24 hr 12/22/24 12/22/24 12/22/24 11:43 14:56 15:27 WBC 18.0 H RBC 4.58 Hgb 13.3 L Hct 38.8 L MCV 85 MCH 29.0 MCHC 34.3 RDW Std Deviation 38.2 Plt Count 360 Neut % (Auto) 59 Lymph % (Auto) 33 Reynolds % (Auto) 6 Eos % (Auto) 1 Baso % (Auto) 1 Neut # (Auto) 10.6 H Lymph # (Auto) 6.0 H Reynolds # (Auto) 1.2 H Eos # (Auto) 0.1 Baso # (Auto) 0.1 Immature Gran # (Auto) 0.13 H Absolute Nucleated RBC 0.00 Immature Gran % 1 H Nucleated RBC % 0 Sodium 131 L Potassium 4.0 Chloride 94 L Carbon Dioxide 20.5 Anion Gap 17 H BUN 96 H Creatinine 2.5 H Estim Creat Clear Calc 25.0 L eGFR 27 L BUN/Creatinine Ratio 38 H Glucose [address] Glu mg/dL Hemoglobin A1c Calculated Osmolality 299 H Lactic Acid 5.0 H* 2.8 H Calcium 9.6 Corrected Calcium 9.6 Phosphorus Magnesium 2.8 H Total Bilirubin 1.2 AST 42 H ALT 65 H Alkaline Phosphatase 103 Total Creatine Kinase 50 Troponin I < 0.020 Total Protein 8.8 H Albumin 4.3 Globulin 4.5 H Albumin/Globulin Ratio 1.0 L Triglycerides Cholesterol LDL Cholesterol, Calc HDL Cholesterol Cholesterol/HDL Ratio Lipase 70 H Procalcitonin 0.98 H TSH Ur Collection Type Clean Catch Urine Color Lt-Yellow Urine Clarity Clear Urine pH 6.0 Ur Specific [place] 1.012 Urine Protein Negative Urine Glucose (UA) Negative Urine Ketones Negative Urine Blood Negative Urine Nitrite Negative Urine Bilirubin Negative Urine Urobilinogen (Auto) Negative Ur Leukocyte Esterase Negative Urine RBC 1 Urine WBC < 1 Ur Squamous Epith Cells 0 Urine Bacteria None RSV Rapid 12/22/24 12/23/24 20:12 05:05 WBC 7.0 D RBC 3.40 L Hgb 9.8 L D Hct 28.8 L MCV 85 MCH 28.8 MCHC 34.0 RDW Std Deviation 39.1 Plt Count 233 D Neut % (Auto) 72 Lymph % (Auto) 18 Reynolds % (Auto) 8 Eos % (Auto) 1 Baso % (Auto) 1 Neut # (Auto) 5.0 Lymph # (Auto) 1.3 Reynolds # (Auto) 0.5 Eos # (Auto) 0.1 Baso # (Auto) 0.1 Immature Gran # (Auto) 0.03 H Absolute Nucleated RBC 0.00 Immature Gran % 0 Nucleated RBC % 0 Sodium 139 Potassium 3.7 Chloride 104 Carbon Dioxide 24.7 Anion Gap 10 BUN 81 H Creatinine 1.9 H D Estim Creat Clear Calc 31.7 L eGFR 37 L BUN/Creatinine Ratio 43 H Glucose [address] Glu mg/dL 140 H Hemoglobin A1c 6.5 H Calculated Osmolality 301 H Lactic Acid Calcium 8.5 Corrected Calcium 8.9 Phosphorus 3.4 Magnesium 2.0 Total Bilirubin 0.9 AST 20 ALT 39 Alkaline Phosphatase 74 D Total Creatine Kinase Troponin I Total Protein 6.8 Albumin 3.5 D Globulin 3.3 Albumin/Globulin Ratio 1.1 L Triglycerides 188 H Cholesterol 96 L LDL Cholesterol, Calc 43 HDL Cholesterol 15 L Cholesterol/HDL Ratio 6.4 Lipase Procalcitonin TSH 0.64 Ur Collection Type Urine Color Urine Clarity Urine pH Ur Specific [place] Urine Protein Urine Glucose (UA) Urine Ketones Urine Blood Urine Nitrite Urine Bilirubin Urine Urobilinogen (Auto) Ur Leukocyte Esterase Urine RBC Urine WBC Ur Squamous Epith Cells Urine Bacteria RSV Rapid Negative Quality Measures Quality Measures sepsis Current suspected stage: sepsis Possible source: GI tract/intra-abdominal Blood cultures ordered: yes Antibiotic ordered: Yes Advance care planning discussed with:: patient and spouse Assessment & Plan Assessment Current Active Medications: Generic Name Dose Route Start Last Admin Trade Name Freq PRN Reason Stop Dose Admin Acetaminophen 650 mg 12/22/24 17:12 Acetaminophen 325 Mg Tablet PO 01/21/25 17:03 Q6H PRN Fever >100.3 or pain Hydrocodone Bitart/Acetaminophen 1 tab 12/22/24 17:04 Hydrocodone/Apap 5/325 Tablet PO 12/27/24 17:03 Q4HR PRN PAIN SCALE 4-10(Mod-Sev Albuterol/Ipratropium 3 ml 12/23/24 15:00 Albuterol/Ipratropium (Duoneb) Rt June 3 Ml Nebu INH 01/22/25 14:59 Q8HRRT THOM Benzonatate 200 mg 12/22/24 21:00 12/23/24 08:00 Benzonatate 100 Mg Capsule PO 01/21/25 20:59 200 mg BID THOM Administration Protocol Enoxaparin Sodium 40 mg 12/22/24 17:15 12/23/24 08:01 Enoxaparin Sod Inj 40 Mg/0.4 Ml Syringe SC 01/05/25 17:14 40 mg QDAY THOM Administration Guaifenesin 200 mg 12/22/24 21:00 12/23/24 08:00 Guaifenesin Syrup 200 Mg/10 Ml Udc PO 01/21/25 20:59 200 mg BID THOM Administration Protocol Sodium Chloride 1,000 mls @ 75 mls/hr 12/22/24 17:15 12/23/24 08:02 Ns IV 01/21/25 17:14 75 mls/hr .[id number] THOM Administration Azithromycin 500 mg/ Sodium 250 mls @ 250 mls/hr 12/23/24 18:00 Chloride IV 12/30/24 17:59 QDAY@1800 THOM Piperacillin Sod/Tazobactam 50 mls @ 12.5 mls/hr 12/22/24 22:00 12/23/24 05:04 Sod 3.375 gm/ Sodium Chloride IV 12/29/24 21:59 12.5 mls/hr Q8HR THOM Administration Ondansetron HCl 4 mg 12/22/24 17:04 Ondansetron Inj 2 Mg/Ml Inj 2 Ml IV 01/21/25 17:03 Q6H PRN NAUSEA OR VOMITING Protocol Pantoprazole Sodium 40 mg 12/22/24 17:15 12/23/24 08:00 Pantoprazole Inj 40 Mg Vial IVP 01/21/25 17:14 40 mg QDAY THOM Administration Sennosides 1 tab 12/23/24 09:00 12/23/24 08:00 Senna Tablet PO 01/22/25 08:59 1 tab QDAY THOM Administration Protocol Plan Patient is a 74-year-old male with a past medical history significant for primary hypertension, umbilical hernia s/p mesh repair and BPH presented with a chief complaint of nausea and vomiting. Patient will be admitted for workup and management of sepsis secondary to community-acquired pneumonia. Sepsis secondary to likely community-acquired pneumonia - resolving Lactic acidosis - resolving Persistent nausea and vomiting - resolved Patient presented with a 2-week history of nausea and vomiting. Associated cough with posttussive vomiting. On exam patient has scattered bilateral wheeze and rhonchi in all lung oneal Chest x-ray significant for bibasilar atelectasis and consolidation. CT abdomen pelvis significant for distended gallbladder, minimal bilateral hydronephrosis with significant prostatomegaly. PSI/PORT risk class IV. Hospitalization recommended based on risk Lactic acid 5??>2.8 RSV negative Plan: ? Graduated to regular diet ? Pending cocci serology ? Pending blood and sputum cultures ? Increased DuoNebs to Q8 hourly ? D2 Zosyn 3.375 g IV Q8 hourly started on [12/22? ? D2 azithromycin 500 Mg IV daily started on [12/22? ? Ondansetron 4 Mg IV every 6 hourly as needed for nausea/vomiting ? Pantoprazole 40 Mg IV daily Acute kidney injury on CKD prerenal versus postrenal?improving BPH Patient's baseline creatinine between 1.3?1.5 On admission creatinine 2.5??>1.9 Patient says he was previously on medication for BPH but had to stop due to side effects. Plan: ?Continue maintenance normal saline IV fluids at 75 cc/h ? Renally dose medication ? Avoid nephrotoxic agents Primary hypertension On admission patient's BP 83/54 Home medication losartan/HCTZ 100/25 1 tab p.o. daily Plan: ? Antihypertensives on hold in setting of sepsis Hyperlipidemia On admission lipid panel significant for triglycerides 188, cholesterol 96, HDL 15 ASCVD 36.2%. High intensity statin recommended Plan: ? Started on atorvastatin 40 Mg p.o. at bedtime Newly diagnosed [id number] diabetes mellitus type 2 [6.5%] A1c on this admission 6.5% Fasting blood glucose 98 Plan: ? Controlled on diet Constipation Patient endorses last bowel movement was almost 10 days ago Plan: ? Started on MiraLAX 1 packet daily ? Continue Senna 1 tab p.o. daily Gallbladder sludge Patient presented with persistent nausea and vomiting for 2 weeks duration. On exam patient's abdomen nontender to palpation in all quadrants CT abdomen pelvis significant for distended gallbladder, minimal bilateral hydronephrosis with significant prostatomegaly. Gallbladder ultrasound significant for sludge. Negative for cholecystitis and cholelithiasis Plan: ? No need for emergent cholecystectomy at this time as per general surgery, Dr. Wisdom recommendations. Health maintenance: Disposition: IV antibiotics. Nebulizations. Anticipate discharge within next 24 to 48 hours Diet: Regular Lines: pIVs GI Prophylaxis: Pantoprazole Thrombo Prophylaxis: Enoxaparin Code status: FULL CODE Plan of care discussed with Attending Dr. Wood and PGY3 Dr. Troy Ramírez MD PGY 1 Attending Provider Attestation/Addendum Christina Sena, DO, attest that I was physically present for the alonso portions of the service and evaluated the patient with the resident and I reviewed and discussed the case with the resident and agree with the resident's findings and plans of care as documented above Patient seen and evaluated this AM. He is much more alert today and states he is feeling better. No acute events overnight. BP remains low-normal. Continue with IV fluids and broad spectrum abx. Patient has been tolerating CLD and denies any more episodes of nausea or vomiting. Will advance diet as tolerated. DANA improved. Will f/u with final cultures and sensitivities to further narrow abx coverage.
[2024-12-23] MEDS: POLYETHYLENE GLYCOL 17 GM PACKET PO (12:00)
--- NOTE | 2024-12-23 14:26 | PC.SS ---
DYE LAB TECHNICIAN met with pt at bedside introduce self and reason for consult. Pt lives at home with , and is currently retired. Pt stated that his medical decision maker is his sister Amy Gomez [phone]. Pt is not diabetic or on dialysis, pharmacy [facility] choice is [facility] [address], and does not use any DME at home. Pt's PCP is Zack Mohan, and SNF preference [facility]
[2024-12-23 14:59] LABS: Cocci Serology, IgM Negative (Negative)
[2024-12-23] MEDS: ATORVASTATIN CALCIUM 20 MG TABLET 40 MG PO (20:51)
[2024-12-23] MEDS: AZITHROMYCIN INJ 500 MG in SODIUM CHLORIDE 0.9% 250 ML 250 ML 250 MG IV (20:54)
[2024-12-24] VITALS (7 sets, daily range): BP systolic 110–135; BP diastolic 53–69; PULSE 68–95; RESP 16–96; TEMP 36.1–37.1; O2SAT 95–100
[2024-12-24] MEDS: PIPER/TAZO INJ 3.375 GM in SODIUM CHLORIDE 0.9% (Popper) 50 ML IV ×2 (05:18→13:37)
[2024-12-24 06:01] LABS: Basophils % (Auto) 0 % (0-2.5); Eosinophils # (Auto) 0.1 Thou/mm3 (0.0-0.5); Eosinophils % (Auto) 1 % (0-10); Hematocrit 27.6 % (41.0-53.0); Hemoglobin 9.5 g/dL (13.5-16.0); Immature Granulocytes % (Auto) 0 % (0-0); Immature Granulocytes Auto 0.02 Thou/mm3 (0.00-0.00); Lymphocytes # (Auto) 1.1 Thou/mm3 (1.0-4.8); Lymphocytes % (Auto) 17 % (10-50); Mean Corpuscular HGB Conc 34.4 g/dl (31.0-37.0); Mean Corpuscular Hemoglobin 29.6 pg (25.0-35.0); Mean Corpuscular Volume 86 fL (80-100); Monocytes # (Auto) 0.5 Thou/mm3 (0.0-0.8); Monocytes % (Auto) 7 % (0-12); Neutrophils # (Auto) 4.7 Thou/mm3 (1.8-7.7); Neutrophils % (Auto) 74 % (37-80); Nucleated Red Blood Cell % 0 /100 WBC (0); Platelet Count 192 Thou/mm3 (140-440); RDW Standard Deviation 40.2 fL (35.1-43.9); Red Blood Count 3.21 Miln/mm3 (4.50-5.90); White Blood Count 6.4 Thou/mm3 (3.8-10.6)
[2024-12-24 06:24] LABS: Alanine Aminotransferase 28 U/L (10-49); Albumin, Serum 3.2 gm/dL (3.4-4.8); Alkaline Phosphatase 67 U/L (46-116); Anion Gap 10 (7-16); Aspartate Amino Transferase 18 U/L (0-34); BUN/Creatinine Ratio 28 Ratio (12-20); Bilirubin,Total 0.6 mg/dL (0.3-1.2); Blood Urea Nitrogen 39 mg/dL (9-23); Calcium 8.3 mg/dL (8.3-10.6); Calcium (Corrected) 8.9 mg/dL (8.5-10.1); Carbon Dioxide 24.2 mMol/L (20.0-31.0); Chloride 106 mMol/L (98-107); Creatinine (Component) 1.4 mg/dL (0.6-1.3); Globulin 3.2 gm/dL (2.3-3.5); Glucose 105 mg/dL (74-106); Magnesium 1.4 mg/dL (1.6-2.6); Osmolality,Calculated 288 (275-295); Phosphorous 2.1 mg/dL (2.4-5.1); Potassium 3.7 mMol/L (3.4-5.1); Sodium 140 mMol/L (136-145); Total Protein 6.4 gm/dL (5.7-8.2); eGFR 53 See Note
[2024-12-24] MEDS: ALBUTEROL/IPRATROPIUM (Duoneb) RT SOL 3 ML NEBU INH ×2 (07:10→14:24)
[2024-12-24] MEDS: guaiFENesin SYRUP 200 MG/10 ML UDC PO (08:06)
[2024-12-24] MEDS: PANTOPRAZOLE INJ 40 MG VIAL IVP (08:06)
[2024-12-24] MEDS: Magnesium Sulfate 2 GM Ivpb 2 GM/50 ML BAG IV (08:07)
[2024-12-24] MEDS: BENZONATATE 100 MG CAPSULE 200 MG PO (08:07)
[2024-12-24] MEDS: ENOXAPARIN SOD INJ 40 MG/0.4 ML SYRINGE SC (08:07)
[2024-12-24] MEDS: POT PHOS 15 mMol in NS 250 ML 15 MMOL/250 ML BAG 62.5 MMOL IV (08:27)
--- NOTE | 2024-12-24 09:23 | ESDS_ITS ---
<Statement entered by Christina Wood DO - 12/25/24 13:13> I, Christina Wood DO, attest that I was physically present for the alonso portions of the service and evaluated the patient with the resident and I reviewed and discussed the case with the resident and agree with the resident's findings and plans of care as documented above <Statement entered by Malachi Simmons MD - 12/25/24 09:06> Agree with plan and examination finding on the note below. Patient seen and examined at bedside today. Labs and imaging reviewed. Patient care discussed with my attending Dr. Wood and co-resident Dr. Ramírez. Planned Discharge Date 12/24/24 DS: Providers Provider Date of admission: 12/22/24 17:04 Primary care physician: Zack Mohan MD Admitting Provider: Christina Wood DO Attending Provider on Admission: Christina Wood DO Consults: 12/22/24 17:12 Consult to General Surgery Routine Comment: Gall bladder sludge. Consulting Provider: Yumiko Wisdom Attending Provider on DC: Christina Wood DO Discharging Provider: Sonido Ramírez MD DS: Diagnosis Problem List Completed Was Problem List Reviewed/Reconciled?: Yes Hospital Course Hospital Course Hospital course: Patient is a 74-year-old male with a past medical history significant for primary hypertension, umbilical hernia s/p mesh repair and BPH presented with a chief complaint of nausea and vomiting. Patient will be admitted for workup and management of sepsis secondary to community-acquired pneumonia. For patient's sepsis secondary to community-acquired pneumonia. Sepsis due to [community-acquired pneumonia] with acute sepsis-related organ dysfunction as evidence by [acute kidney injury]. He was treated with 3 days of Zosyn 3.375 g IV every 8 hourly and azithromycin 500 Mg IV daily. After this has nausea, vomiting and cough improved. Patient was also treated with DuoNebs every 8 hourly. He was investigated for RSV, influenza and cocci which were all negative. Blood and sputum cultures showed no bacterial growth upon discharge?preliminary. For patient's persistent nausea and vomiting, he was treated with ondansetron 4 Mg IV every 6 hourly as needed and pantoprazole 40 Mg IV daily. His nausea and vomiting subsequently resolved and patient is now tolerating regular diet. With regards to patient's acute kidney injury on CKD. His admission creatinine of 2.5 improved to 1.4 upon discharge. This appears to be around his baseline creatinine For patient's BPH, initially he was catheterized in the ED. Today his catheter was clamped and released and patient was able to pass urine on his own. He was started on Flomax 0.4 Mg p.o. at bedtime and finasteride 5 Mg p.o. daily. He was also advised to follow-up with urology outpatient for possible TURP. With regards to patient's hypertension. His home medication of losartan/HCTZ 100/25 1 tab p.o. daily was put on hold until he sees his PCP. This was due to to hypotension and low blood pressures in hospital. Upon discharge patient's blood pressure was 113/59. Patient's HbA1c on this admission was 6.5%. Technically this makes him diabetic, however patient opts to be controlled on diet first. Also given his age there is HbA1c is acceptable. All patient's labs are now returning to his baseline. Patient is now clinically stable and fit for discharge to home. Discharge diagnoses: 1. Sepsis secondary to likely community-acquired pneumonia?resolved 2. Lactic acidosis?resolved 3. Persistent nausea and vomiting?resolved 4. Acute kidney injury on CKD prerenal versus postrenal?resolved 5. Benign prostatic hyperplasia 6. Primary hypertension 7. Hyperlipidemia 8. Newly diagnosed [id number] diabetes mellitus type 2 [65%] 9. Constipation?resolved 10. Gallbladder sludge Discharge plan: - You have been started on an antibiotic for your pneumonia. Take one tablet twice a day for the next three days. ? You have been started on new medication for your prostate tamsulosin. Take 1 tablet at night. If you experience symptoms of dizziness, blacking out please do not take the medication. Also measure your blood pressure daily, if the top number is less than 100 do not take a medication. ? You have been started on a new medication for your prostate finasteride. Please take 1 tablet once a day. ? We have put a hold on your blood pressure medication. Monitor your blood pressure daily, if the top number is greater than 130 you can resume taking. ? We recommend that you make an appointment to see a urologist within 1 to 2 weeks of discharge for your prostate. - Follow up with your primary care physician within 1 week of discharge. If you do not have a primary care physician, please follow up with the [facility] Residents clinic ([phone]) ? If you experience any new, worsening or persistent symptoms either call your primary doctor, or dial 911 or present to the emergency department. We are grateful to be able to participate in Mr. Henderson's care. We wish him the best. Plan of care discussed with Attending Dr. Wood and PGY3 Dr. Troy Ramírez MD PGY 1 Time Spent with Patient Time attestation: Total time spent providing and/or coordinating discharge services: Time spent: Greater than 30 minutes (38) Exam Vital Signs Temp Pulse Resp BP Pulse Ox O2 Del Method O2 Flow Rate 98.7 F 95 16 115/60 100 Room Air 0 12/24/24 08:00 12/24/24 08:00 12/24/24 08:00 12/24/24 08:00 12/24/24 08:00 12/24/24 08:00 12/24/24 08:00 Narrative Exam Constitutional Alert, oriented x 3 and comfortable. Elderly male on room air HEENT Vision grossly intact. Patent nares. Trachea midline Respiratory Chest normal on inspection and lungs clear to auscultation bilaterally Cardiovascular S1 and S2 audible, RRR. No murmurs carotid bruit. No gross JVD. Abdominal Soft and non tender to palpation in all quadrants. BS + Genitourinary No bladder tenderness, no flank pain. Normal to palpation Musculoskeletal Extremities tone within normal limits. Right leg shortened. Neurological CN II - XII grossly intact. Extremity motor and sensation grossly intact. Skin Warm, dry and intact. No apparent lesions. Psychiatric Patient has good affect, is cooperative Discharge Plan Plan Patient Disposition: HOME (Self Care) Patient condition on transfer: Stable Care Plan Goals: - You have been started on an antibiotic for your pneumonia. Take one tablet twice a day for the next three days. ? You have been started on new medication for your prostate tamsulosin. Take 1 tablet at night. If you experience symptoms of dizziness, blacking out please do not take the medication. Also measure your blood pressure daily, if the top number is less than 100 do not take a medication. ? You have been started on a new medication for your prostate finasteride. Please take 1 tablet once a day. ? We have put a hold on your blood pressure medication. Monitor your blood pressure daily, if the top number is greater than 130 you can resume taking. ? We recommend that you make an appointment to see a urologist within 1 to 2 weeks of discharge for your prostate. - Follow up with your primary care physician within 1 week of discharge. If you do not have a primary care physician, please follow up with the [facility] Residents clinic ([phone]) ? If you experience any new, worsening or persistent symptoms either call your primary doctor, or dial 911 or present to the emergency department. Prescriptions/Referrals Prescriptions/Med Rec: New tamsulosin 0.4 mg capsule 0.4 mg PO HS 30 Days Qty: 30 2RF Rx Instructions: please stop taking is patient is symptomatic or SBP is less than 100 finasteride 5 mg tablet 5 mg PO QDAY 30 Days Qty: 30 2RF amoxicillin-pot clavulanate 875-125 mg tablet 1 tab PO BID 3 Days Qty: 6 0RF Held losartan-hydrochlorothiazide 100-25 mg Tablet 1 tab PO QDAY Hold Instructions: Resume on 01/07/25. Hold until you see your PCP Patient Comments: Patient states he has not been taking Bp meds per doctor remmendation as his bp has been low Referrals: Zack Mohan MD [Primary Care Provider] - Sonido Ramírez MD [Resident] - Patient/Caregiver Discharge Instructions Discharge Activity: activity as tolerated Education Materials: ED Hypertension, Established Print Language: Eritrean Stand Alone Forms: Angie Award Info., Patient Portal Info Letter Discharge Order Discharge Orders: Discharge (Routine); Ordered 12/24/24 Ordered By: Sonido Ramírez Quality Discharge Quality Measures VTE prophylaxis
--- NOTE | 2024-12-24 09:50 | PC.SS ---
Update: Plan is to remove patient's martinez catheter today. Martinez trial to follow. If patient passes martinez trial, plan is to d/c patient.
[2024-12-24] MEDS: FINASTERIDE 5 MG TABLET PO (09:54)
--- NOTE | 2024-12-24 10:54 | PC.SS ---
[employer]ENT confirmed with patient that d/c plan is for the patient to return home.
[2024-12-24 14:55] LABS: Cocci Serology, IgG Negative (Negative)
== END 2024-12-24 14:36 | disposition home or self-care (01) | DRG 871 ==
LOC: SERX 17:07 → SERHOLD 17:55 → S3NX 12-24 06:26
PROVIDERS: Nurse Practitioner Primary Care; Admitting Provider Internal Medicine; Emergency Provider Emergency Medicine; PCP Family Medicine; Visit Provider Internal Medicine
DX: A41.9 Sepsis, unspecified organism (principal); J18.9 Pneumonia, unspecified organism; N17.9 Acute kidney failure, unspecified; E87.20 Acidosis, unspecified; K57.32 Diverticulitis of large intestine without perforation or abscess without bleeding; N40.0 Benign prostatic hyperplasia without lower urinary tract symptoms; K82.8 Other specified diseases of gallbladder; I12.9 Hypertensive chronic kidney disease with stage 1 through stage 4 chronic kidney disease, or unspecified chronic kidney disease; N18.9 Chronic kidney disease, unspecified; R65.20 Severe sepsis without septic shock; K59.00 Constipation, unspecified; E78.5 Hyperlipidemia, unspecified; E11.22 Type 2 diabetes mellitus with diabetic chronic kidney disease; E86.0 Dehydration; Z79.899 Other long term (current) drug therapy; Z87.81 Personal history of (healed) traumatic fracture; Z87.19 Personal history of other diseases of the digestive system
CPT/HCPCS: 36415; 71045; 71250; 74176; 76705; 80053; 80061; 81001; 82550; 83036; 83605; 83690; 83735; 84100; 84145; 84443; 84484; 85025; 86331; 86635; 87040; 87205; 87400; 87634; 87811; 93005; 94640; 94664; 94667; 96361; 96365; 96367; 96372; 96374; 99291; A9270; J0456; J1650; J2470; J2543; J3475; J7030; J7040; J7050; J7999

== ENCOUNTER → 2025-01-24 | Outpatient (CLI) | payer MEDICARE, MEDICAID, SELFPAY ==
[2025-01-24 14:07] LABS: Basophils % (Auto) 1 % (0-2.5); Eosinophils # (Auto) 0.2 Thou/mm3 (0.0-0.5); Eosinophils % (Auto) 3 % (0-10); Hematocrit 31.8 % (41.0-53.0); Hemoglobin 10.6 g/dL (13.5-16.0); Immature Granulocytes % (Auto) 0 % (0-0); Immature Granulocytes Auto 0.01 Thou/mm3 (0.00-0.00); Lymphocytes # (Auto) 1.9 Thou/mm3 (1.0-4.8); Lymphocytes % (Auto) 33 % (10-50); Mean Corpuscular HGB Conc 33.3 g/dl (31.0-37.0); Mean Corpuscular Volume 87 fL (80-100); Monocytes # (Auto) 0.4 Thou/mm3 (0.0-0.8); Monocytes % (Auto) 8 % (0-12); Neutrophils # (Auto) 3.3 Thou/mm3 (1.8-7.7); Neutrophils % (Auto) 56 % (37-80); Nucleated Red Blood Cell % 0 /100 WBC (0); Platelet Count 205 Thou/mm3 (140-440); RDW Standard Deviation 45.4 fL (35.1-43.9); Red Blood Count 3.66 Miln/mm3 (4.50-5.90); White Blood Count 5.8 Thou/mm3 (3.8-10.6)
[2025-01-24 14:17] LABS: Prostate Specific Antigen 5.42 ng/mL (0-4.00)
[2025-01-24 14:19] LABS: Alanine Aminotransferase 24 U/L (10-49); Albumin, Serum 4.1 gm/dL (3.4-4.8); Albumin/Globulin Ratio 1.2 (1.2-2.2); Alkaline Phosphatase 82 U/L (46-116); Anion Gap 8 (7-16); Aspartate Amino Transferase 22 U/L (0-34); BUN/Creatinine Ratio 13 Ratio (12-20); Bilirubin,Total 0.8 mg/dL (0.3-1.2); Blood Urea Nitrogen 16 mg/dL (9-23); Calcium 9.3 mg/dL (8.3-10.6); Calcium (Corrected) 9.3 mg/dL (8.5-10.1); Chloride 106 mMol/L (98-107); Creatinine (Component) 1.2 mg/dL (0.6-1.3); Globulin 3.5 gm/dL (2.3-3.5); Glucose 152 mg/dL (74-106); Osmolality,Calculated 281 (275-295); Potassium 3.8 mMol/L (3.4-5.1); Sodium 139 mMol/L (136-145); Total Protein 7.6 gm/dL (5.7-8.2); eGFR > 60 See Note
== END | disposition home or self-care (01) ==
LOC: COPL 13:03
PROVIDERS: PCP Nurse Practitioner Family; Referring Provider Nurse Practitioner Family; Visit Provider Nurse Practitioner Family
DX: N18.2 Chronic kidney disease, stage 2 (mild) (principal); R97.20 Elevated prostate specific antigen [PSA]
CPT/HCPCS: 36415; 80053; 84153; 85025

== ENCOUNTER → 2025-02-28 | Outpatient (BNVA) | payer MEDICARE, MEDICAID, SELFPAY | END | disposition home or self-care (01) | PROVIDERS: PCP Family Medicine; Referring Provider Family Medicine; Visit Provider Urology | DX: N40.1 Benign prostatic hyperplasia with lower urinary tract symptoms (principal); N13.8 Other obstructive and reflux uropathy; R97.20 Elevated prostate specific antigen [PSA]; N40.2 Nodular prostate without lower urinary tract symptoms; I10 Essential (primary) hypertension; E78.00 Pure hypercholesterolemia, unspecified | CPT/HCPCS: 81003; 99203; G0463 ==

== ENCOUNTER → 2025-04-04 | Outpatient (BNVA) | payer MEDICARE, MEDICAID, SELFPAY | END | disposition home or self-care (01) | PROVIDERS: PCP Family Medicine; Referring Provider Family Medicine; Visit Provider Urology | DX: R39.198 Other difficulties with micturition (principal); Z53.8 Procedure and treatment not carried out for other reasons; I10 Essential (primary) hypertension | CPT/HCPCS: 99212; G0463 ==

== ENCOUNTER → 2025-04-12 | Outpatient (BNVA) | payer MEDICARE, MEDICAID, SELFPAY | END | disposition home or self-care (01) | PROVIDERS: PCP Family Medicine; Referring Provider Family Medicine; Visit Provider Urology | DX: N42.89 Other specified disorders of prostate (principal); N40.1 Benign prostatic hyperplasia with lower urinary tract symptoms; N13.8 Other obstructive and reflux uropathy; I10 Essential (primary) hypertension; E78.00 Pure hypercholesterolemia, unspecified | CPT/HCPCS: 55700; 76942; 81003; 96372; A4649; J1580; J3490; A9270 ==

== ENCOUNTER → 2025-05-02 | Outpatient (BNVA) | payer MEDICARE, MEDICAID, SELFPAY | END | disposition home or self-care (01) | PROVIDERS: PCP Family Medicine; Referring Provider Family Medicine; Visit Provider Urology | DX: R39.198 Other difficulties with micturition (principal); Z53.8 Procedure and treatment not carried out for other reasons; I10 Essential (primary) hypertension; Z87.891 Personal history of nicotine dependence | CPT/HCPCS: 99212; G0463 ==

== ENCOUNTER → 2025-05-08 | Outpatient (CLI) | payer MEDICARE, MEDICAID, SELFPAY ==
[2025-05-08 10:07] LABS: Collection Type, Urine Clean Catch; RBC,Urine 0 /hpf (0-3)
[2025-05-08 10:31] LABS: Bilirubin,Urine Negative (Negative); Blood,Urine Negative (Negative); Clarity,Urine Clear (Clear/Hazy); Color,Urine Lt-Yellow (Lt Yel-Yel); Culture Indicated,Urine Not Indicated; Glucose, Urine Negative (Negative); Ketones,Urine Negative (Negative); Leukocyte Esterase,Urine Negative (Negative); Nitrite,Urine Negative (Negative); PH,Urine 5.5 (5.0-7.0); Protein,Urine Negative (Neg - Trace); Specific Gravity,Urine 1.017 (1.001-1.035); Squamous Epithelial Cell,Urine < 1 /hpf (0-5); Urobilinogen,Urine Negative mg/dL (0.0-1.0); WBC,Urine < 1 /hpf (0-5)
[2025-05-08 10:47] LABS: Alanine Aminotransferase 33 U/L (10-49); Albumin, Serum 4.2 gm/dL (3.4-4.8); Albumin/Globulin Ratio 1.3 (1.2-2.2); Alkaline Phosphatase 80 U/L (46-116); Anion Gap 10 (7-16); Aspartate Amino Transferase 26 U/L (0-34); BUN/Creatinine Ratio 21 Ratio (12-20); Bilirubin,Total 0.4 mg/dL (0.3-1.2); Blood Urea Nitrogen 34 mg/dL (9-23); Calcium 9.2 mg/dL (8.3-10.6); Calcium (Corrected) 9.2 mg/dL (8.5-10.1); Carbon Dioxide 25.3 mMol/L (20.0-31.0); Chloride 110 mMol/L (98-107); Creatinine (Component) 1.6 mg/dL (0.6-1.3); Globulin 3.2 gm/dL (2.3-3.5); Glucose 120 mg/dL (74-106); Osmolality,Calculated 297 (275-295); Potassium 4.4 mMol/L (3.4-5.1); Sodium 145 mMol/L (136-145); Thyroid Stimulating Hormone 2.15 uIU/mL (0.55-4.78); Total Protein 7.4 gm/dL (5.7-8.2); eGFR 45 See Note
[2025-05-08 10:54] LABS: Creatinine MALB Rnd Ur 104 mg/dL (30-125); Microalbumin, Random Urine < 3 mg/L (0-300)
== END | disposition home or self-care (01) ==
PROVIDERS: PCP Nurse Practitioner Family; Referring Provider Nurse Practitioner Family; Visit Provider Nurse Practitioner Family
DX: Z00.00 Encounter for general adult medical examination without abnormal findings (principal); I12.9 Hypertensive chronic kidney disease with stage 1 through stage 4 chronic kidney disease, or unspecified chronic kidney disease; N18.2 Chronic kidney disease, stage 2 (mild); E78.5 Hyperlipidemia, unspecified; R73.01 Impaired fasting glucose
CPT/HCPCS: 36415; 80053; 81001; 82043; 82570; 84443

== ENCOUNTER → 2025-05-30 | Outpatient (BNVA) | payer MEDICARE, MEDICAID, SELFPAY | END | disposition home or self-care (01) | PROVIDERS: PCP Family Medicine; Referring Provider Family Medicine; Visit Provider Urology | DX: N40.1 Benign prostatic hyperplasia with lower urinary tract symptoms (principal); R39.12 Poor urinary stream; I10 Essential (primary) hypertension; E78.00 Pure hypercholesterolemia, unspecified | CPT/HCPCS: 51741; 51798 ==

== ENCOUNTER → 2025-07-22 | Outpatient (BNVA) | payer MEDICARE, MEDICAID, SELFPAY | END | disposition home or self-care (01) | PROVIDERS: PCP Family Medicine; Referring Provider Family Medicine; Visit Provider Urology | DX: N40.1 Benign prostatic hyperplasia with lower urinary tract symptoms (principal); N13.8 Other obstructive and reflux uropathy; N40.2 Nodular prostate without lower urinary tract symptoms; I10 Essential (primary) hypertension; E66.9 Obesity, unspecified; Z68.26 Body mass index [BMI] 26.0-26.9, adult; E78.00 Pure hypercholesterolemia, unspecified | CPT/HCPCS: 81003; 99212; G0463 ==